=== PATIENT | female | born 1975 | race Caucasian/White ===

== ENCOUNTER 2016-03-15 12:55 | Emergency (ER) | payer MEDICARE, MEDICAID ==
[2016-03-15 13:27] VITALS: BP 121/67; PULSE 88; TEMP 98.7; BMI 33.3
--- NOTE | 2016-03-15 14:53 | DIRPT ---
CLINICAL DATA: 41-year-old female with left hip pain after falling on the ice yesterday EXAM: LEFT HIP (WITH PELVIS) 2-3 VIEWS COMPARISON: Concurrently obtained radiographs of the left thigh and knee FINDINGS: There is no evidence of hip fracture or dislocation. There is no evidence of arthropathy or other focal bone abnormality. IMPRESSION: Negative. Electronically Signed By: Lai Posadas M.D. On: 03/15/2016 14:51
--- NOTE | 2016-03-15 14:54 | DIRPT ---
CLINICAL DATA: Status post fall on ice 03/15/2016 with a left knee injury. Pain. Initial encounter. EXAM: LEFT KNEE - COMPLETE 4+ VIEW COMPARISON: None. FINDINGS: There is no evidence of fracture, dislocation, or joint effusion. There is no evidence of arthropathy or other focal bone abnormality. Soft tissues are unremarkable. IMPRESSION: Negative exam. Electronically Signed By: Gamaliel Guerra M.D. On: 03/15/2016 14:51
--- NOTE | 2016-03-15 14:57 | DIRPT ---
CLINICAL DATA: Status post fall 03/14/2016 on ice. Left upper leg injury. Pain. Initial encounter. EXAM: LEFT FEMUR - 2 VIEW COMPARISON: None. FINDINGS: There is no evidence of fracture or other focal bone lesions. Soft tissues are unremarkable. IMPRESSION: Negative exam. Electronically Signed By: Gamaliel Geurra M.D. On: 03/15/2016 14:54
[2016-03-15] MEDS ORDERED: OXYCODONE HCL 5 MG TABLET PO ONE (15:36)
[2016-03-15] MEDS ORDERED: DIAZEPAM 5 MG TAB PO ONE (15:36)
[2016-03-15] MEDS ORDERED: PREDNISONE 20 MG TAB PO ONE (15:36)
--- NOTE | 2016-03-15 15:49 | EDPRACDOC ---
ED Hip Problem HPI - General Information Chief Complaint: Hip Pain Stated Complaint: FALL Time Seen by Provider: 03/15/16 15:30 Information Source: Patient Mode of Arrival: Car Home Medications: Home Medications Citalopram (anti-depressant) [Celexa] 20 mg PO DAILY 12/09/12 Divalproex Sodium [Depakote] 500 mg PO BID 12/09/12 Metformin HCl 1,000 mg PO BID 12/09/12 Albuterol Sulfate [Proair Hfa] 2 puff INH QID #1 inhaler 11/10/15 Diazepam [Valium] 5 mg PO TID #15 tablet 03/15/16 Oxycodone Immediate Release [Oxycodone Immediate Release (OxyIR)] 5 mg PO Q6H PRN #20 tab 03/15/16 Prednisone [Deltasone, Orasone] 20 mg PO BID #12 tab 03/15/16 Rabeprazole Sodium [Aciphex] 20 mg PO DAILY 03/15/16 Allergies/Adverse Reactions: Allergies Allergy/AdvReac Type Severity Reaction Status Date / Time codeine Allergy Nausea/Vomi Verified 03/15/16 13:26 ting Penicillins Allergy Difficulty Verified 03/15/16 13:26 Breathing tramadol Allergy Itching Verified 03/15/16 13:26 - History of Present Illness Onset: YEST HPI: PT PRESENTS WITH LEFT HIP AND KNEE PAIN FOLLOWING FALLING ON THE ICE. PT STATES IT IS WORSENED BY BENDING THE LEG. PT IS ABLE TO BEAR WEIGHT ON THE LEG WITHOUT ISSUE. PT PRESENTS WITH BRISK CAP REFILL, 2+ PEDAL PULSE, BRISK CAP REFILL Hip Problem Location: Reports: Left Mechanism: Reports: Blunt Trauma Circumstances: Reports: Fall Relevant History: Reports: None Tetanus Up To Date?: No Able to Bear Weight: Limited Pain Severity: Moderate Associated Signs & Symptoms: Reports: Knee Pain - Treatment Prior to ED Arrival Reported Medications/Treatment [employer]EL[employer] Ibuprofen/Acetaminophen (Dose/ TYLENOL 500MG X 2-1000 Time) ED Past Medical History - History Reviewed Yes Nurses notes reviewed and agree except as marked - Patient Medical History GI/ History: Reports: Gastroesophageal Reflux Psychological History: Denies: Depression Systemic History: Reports: Diabetes Additional Past Medical History: CHRONIC BACK PAIN IN PAIN MANAGMENT Surgical History: Reports: Cholecystectomy - Social Medical History Smoking Status: Never smoker EDM Review of Systems - Review of Systems ROS Negative Except as Marked: Yes All systems reviewed and were negative except as marked - Physical Exam Constitutional: Alert Oriented to: Time, Person, Place Last recorded Vital Signs: Last Vital Signs Temp 98.7 F 03/15/16 13:26 Pulse 88 03/15/16 13:26 Resp 18 03/15/16 13:26 BP 121/67 03/15/16 13:26 Pulse Ox 95 03/15/16 13:26 Oxygen Pulse Oxygen Saturation 95 O2 Device Oxygen Flow Rate Fraction of Inspired Oxygen ( FIO2) - HEENT Head: Normal ( normocephalic) Eye Exam: Normal (PERRL, EOMI, Sclera white) Oropharynx: Normal (Pharynx:Moist without exudate,Gums-no swelling) Nose: No Symptoms Reported (septum midline) Neck: Normal (FROM, trachea at midline) - Respiratory/Cardiovascular Respiratory: Normal - CTA (BBS clear to auscultation without adventitious sounds ) Cardiovascular: Normal (RRR without murmur, gallop or rub) - GI Auscultation: Normal (NABS) Palpation: Normal (Soft,No rebound or guarding, non distended) Tenderness: Non tender Loving's Sign: Negative Rectal Exam: Deferred - Musculoskeletal Back: Normal (Non-Tender) Extremities: Normal (Normal tone, Pulses 2+ No cyanosis or edema, FROM) - Integumentary Skin: Normal, Warm, Dry Lymphatics: Normal (no adenopathy) - Neurologic Memory Impaired: Normal Motor Function: Normal (Normal tone, Pulses 2+ No cyanosis or edema, FROM) Cranial Nerve: Normal (CN II-X11 intact sensation, strength 5/5) Cerebellar: Normal Mood Description: Normal Perception: Normal ED Hip Problem Physical Exam - Musculoskeletal Hip: Moderate tenderness Hip Deformity: Normal Pelvis: Normal Thigh: Normal Back: Normal Distal Function/Circulation: Normal - Differential Diagnosis Sprain Decision Time to Discharge: 15:50 - Departure Disposition: Home Condition: Stable Final Diagnosis: Left hip pain Fall Qualifiers: Encounter type: initial encounter Qualified Code(s): W19.XXXA - Unspecified fall, initial encounter Left knee pain Qualifiers: Chronicity: acute Qualified Code(s): M25.562 - Pain in left knee Instructions: Fall Prevention (ED), RICE: Routine Care for Injuries, Hip Pain ( ED), Arthralgia (ED) Education/Counseling Given To: Patient Education/Counseling Given Regarding: Diagnosis, Treatment, Prognosis, Follow Up Referrals: Porfirio Mcgregor II, MD [Staff Physician] - One Week Jose Armando Phoenix MD [Staff Physician] - One Week Prescriptions: Diazepam [Valium] 5 mg PO TID #15 tablet Oxycodone Immediate Release [Oxycodone Immediate Release (OxyIR)] 5 mg PO Q6H PRN #20 tab PRN Reason: Pain Prednisone [Deltasone, Orasone] 20 mg PO BID #12 tab Additional Instructions: ICE OR HEAT TO THE AFFECTED AREA. FOLLOW UP WITH ORTHOPEDIC IF PAIN PERSIST.
== END 2016-03-15 16:05 | disposition home or self-care (01) ==
LOC: EDMC 12:55
DX: M25.552 Pain in left hip (principal); M25.562 Pain in left knee; W00.0XXA Fall on same level due to ice and snow, initial encounter; Y93.9 Activity, unspecified
CPT/HCPCS: 73502; 73552; 73564; 99284; A9270; J3490